=== PATIENT | male | born 1985 | race Caucasian/White ===

== ENCOUNTER 2018-06-27 00:02 | Emergency (ER) | payer MEDICAID ==
[2018-06-27] MEDS ORDERED: LIDOCAINE 2%-EPI 1:100000 20 ML MDV SUBQ STA (00:19)
[2018-06-27] MEDS ORDERED: LIDOCAINE 1% 2 ML VIAL SUBQ ONE (00:47)
[2018-06-27] MEDS ORDERED: cefTRIAXone 1 GM VIAL IM STA (00:47)
[2018-06-27] MEDS ORDERED: SULFAMETH/TRIMETH DS 800/160 MG TABLET PO STA (00:47)
--- NOTE | 2018-06-27 00:52 | ED Physician Documentation ---
History of Present Illness - Stated complaint Stated Complaint: ABSCESS - Chief complaint Chief Complaint: Wound - History obtained from History obtained from: Patient, Friend - History of Present Illness Timing: How many weeks ago (1) Pain level max: 10 Pain level now: 10 Improved by: drainage Worsened by: palpation - Additonal information Additional information: Patient is a 32-year-old male who presents to the emergency department with redness and swelling to the right anterior chest wall. States this started after injecting heroin. He states it drained a large amount of pus yesterday but is continued to hurt today. No fevers. Has had abscesses in the past from drug use as well. Tetanus is up-to-date Review of Systems Constitutional: denies: Fever, Chills Respiratory: denies: Cough GI: denies: Abdominal Pain, Nausea, Vomiting Musculoskeletal: denies: Neck pain, Back pain Neurologic: denies: Headache PD PAST MEDICAL HISTORY - Past Medical History Cardiovascular: None Respiratory: Other Endocrine/Autoimmune: None GI: None : None HEENT: None Psych: ADD/ADHD Musculoskeletal: None Derm: Other - Past Surgical History Past Surgical History: Yes Ortho: Shoulder arthroplasty Cardiovascular: Other - Present Medications Home Medications: Ambulatory Orders Medication Instructions Recorded Confirmed Cyclobenzaprine [Flexeril] 10 mg PO TID PRN #20 tablet 09/12/16 HYDROcod/ACETAM 5/325 [[place] 5/325] 1 - 2 ea PO Q6H PRN #15 tablet 09/12/16 Cephalexin [Keflex] 500 mg PO Q6H #40 capsule 06/27/18 Sulfamethox/Trimeth 800/160 1 each PO BID #20 tablet 06/27/18 [Bactrim Ds 800/160] - Allergies Allergies/Adverse Reactions: Allergies Allergy/AdvReac Type Severity Reaction Status Date / Time codeine Allergy Mild Itching Verified 06/27/18 00:13 - Social History Does the pt smoke?: Yes Smoking Status: Current every day smoker Does the pt drink ETOH?: No Does the pt have substance abuse?: Yes Substance Use and Type: Heroin - Immunizations Immunizations are current?: Yes - POLST Patient has POLST: No PD ED PE NORMAL - Vitals Vital signs reviewed: Yes - General General: Alert and oriented X 3, No acute distress - HEENT HEENT: Moist mucous membranes - Neck Neck: Supple, no meningeal sign - Cardiac Cardiac: RRR, No murmur, Strong equal pulses - Respiratory Respiratory: No respiratory distress, Clear bilaterally - Abdomen Abdomen: Soft, Non tender, Non distended - Derm Derm: Warm and dry - Neuro Neuro: Alert and oriented X 3 - Free text exam Free text exam: 12x8cm of erythema, induration and fluctuance to the R anterior chest wall. + fluctuance Results - Vitals Vitals: Vital Signs - 24 hr 06/27/18 06/27/18 00:11 01:07 Temperature 37.5 C Heart Rate 106 H 103 H Respiratory 20 16 Rate Blood Pressure 148/117 H 130/71 O2 Saturation 95 96 Oxygen O2 Source Room air Procedures - Laceration (location) R chest wall Deep layer closure: Other - Abscess I&D (location) R chest wall Preparation: Lidocaine 2 %, With epi Incision: Incised with scalpel, Purulent drainage, Loculations broken, Irrigated, Packed, Culture obtained Other: Pt tolerated well, Dressing applied, Antibiotic prescribed PD MEDICAL DECISION MAKING - ED course Complexity details: reviewed results, re-evaluated patient, considered differential, d/w patient, d/w family ED course: Patient is a 32-year-old male who presents to the emergency department with a r ight sided chest wall abscess and cellulitis. This was incised and drained. Tolerated well. Given injection of Rocephin here as well as Bactrim. Will place him on Bactrim and Keflex for home. No fevers. No evidence of sepsis. Warnings of infection and instructions on wound care given at bedside. Also counseled on how to minimize scarring. Patient counseled regarding signs and symptoms for which I believe and urgent re-evaluation would be necessary. Patient with good understanding of and agreement to plan and is comfortable going home at this time This document was made in part using voice recognition software. While efforts are made to proofread this document, sound alike and grammatical errors may occur. - Sepsis Event Vital Signs: Vital Signs - 24 hr 06/27/18 06/27/18 00:11 01:07 Temperature 37.5 C Heart Rate 106 H 103 H Respiratory 20 16 Rate Blood Pressure 148/117 H 130/71 O2 Saturation 95 96 Oxygen O2 Source Room air Departure - Departure Disposition: 01 Home, Self Care Clinical Impression: Abscess Cellulitis Qualifiers: Site of cellulitis: trunk Site of cellulitis of trunk: chest wall Qualified Code(s): L03.313 - Cellulitis of chest wall Condition: Good Instructions: ED Abscess IandD Follow-Up: your,doctor or here in 2 days for recheck [Other] Prescriptions: Cephalexin [Keflex] 500 mg PO Q6H #40 capsule Sulfamethox/Trimeth 800/160 [Bactrim Ds 800/160] 1 each PO BID #20 tablet Comments: Take all antibiotics until gone. Return if you worsen. Return in 2 days for a wound check. Return sooner for fevers, chills or worsening symptoms Discharge Date/Time: 06/27/18 01:07
[2018-06-27 01:07] VITALS: BP 130/71
== END 2018-06-27 01:07 | disposition home or self-care (01) ==
LOC: ED 00:02
DX: L02.213 Cutaneous abscess of chest wall (principal); L03.313 Cellulitis of chest wall; F17.200 Nicotine dependence, unspecified, uncomplicated
CPT/HCPCS: 10060; 87070; 87181; 87205; 96372; 99283; A9270

== ENCOUNTER 2018-06-29 20:24 | Emergency (ER) | payer MEDICAID ==
[2018-06-29 20:31] VITALS: BP 145/97
--- NOTE | 2018-06-29 20:41 | ED Physician Documentation ---
PD HPI WOUND RECHECK - Stated complaint Stated Complaint: WOUND CHECK - Chief complaint Chief Complaint: Wound - Histroy obtained from History obtained from: Patient - History of Present Illness Location: Chest Timing - onset: How many days ago (3) Similar symptoms before: Work up / diagnostics, Treatment Recently seen: Emergency Dept - Additional information Additional information: patient is a 32 year old male who is presenting to the emergency department for a wound check. patient was seen her a few days prior. At that time patient was diagnosed with abscess and cellulitis after injecting heroin. Patient was started on bactrim and keflex. patient states that his wound is getting smaller but his girlfriend wanted it to get checked and he doesn't have a primary care physician. Review of Systems Constitutional: denies: Fever, Chills Skin: reports: Rash, Abrasion (s) PD PAST MEDICAL HISTORY - Past Medical History Past Medical History: Yes Cardiovascular: None Respiratory: Other Neuro: None Endocrine/Autoimmune: None GI: None : None HEENT: None Psych: ADD/ADHD Musculoskeletal: None Derm: Other - Past Surgical History Past Surgical History: Yes Ortho: Shoulder arthroplasty Cardiovascular: Other - Present Medications Home Medications: Ambulatory Orders Medication Instructions Recorded Confirmed Cephalexin [Keflex] 500 mg PO Q6H #40 capsule 06/27/18 Sulfamethox/Trimeth 800/160 1 each PO BID #20 tablet 06/27/18 [Bactrim Ds 800/160] - Allergies Allergies/Adverse Reactions: Allergies Allergy/AdvReac Type Severity Reaction Status Date / Time codeine Allergy Mild Itching Verified 06/29/18 20:31 - Social History Does the pt smoke?: Yes Smoking Status: Current every day smoker Does the pt drink ETOH?: No Does the pt have substance abuse?: Yes - Immunizations Immunizations are current?: Yes - POLST Patient has POLST: No PD ED PE NORMAL - Vitals Vital signs reviewed: Yes - General General: Alert and oriented X 3, No acute distress - HEENT HEENT: Atraumatic - Cardiac Cardiac: RRR - Respiratory Respiratory: No respiratory distress - Extremities Extremities: No deformity - Neuro Neuro: Alert and oriented X 3 - Psych Psych: Normal mood PD ED PE EXPANDED - Derm Derm: Abscess (6 by 8 cm area of induration and erythema, minimal discharge) Results - Vitals Vitals: Vital Signs - 24 hr 06/29/18 20:28 Temperature 36.8 C Heart Rate 84 Respiratory 14 Rate Blood Pressure 145/97 H O2 Saturation 98 Oxygen O2 Source Room air PD MEDICAL DECISION MAKING - ED course Complexity details: reviewed old records, considered differential, d/w patient ED course: Patient was seen and examined at bedside. patient was well appearing and in no distress. patient's wound was healing appropriately and patient had his antibiotics. Patient's dressing was changed. patient required no further work up at this time and was stable for discharge with outpatient follow up. - Sepsis Event Vital Signs: Vital Signs - 24 hr 06/29/18 20:28 Temperature 36.8 C Heart Rate 84 Respiratory 14 Rate Blood Pressure 145/97 H O2 Saturation 98 Oxygen O2 Source Room air Departure - Departure Disposition: Home, Self Care Clinical Impression: Cellulitis Condition: Good Instructions: ED Infec Skin Cellulitis Follow-Up: Primary,care provider [Other] Comments: Your wound likes it is progressing well. You should continue and complete your entire course of antibiotics. You can take motrin or tylenol as needed for pain. You should keep the area clean and dry. You may return to the emergency department at any time for new, worsening or uncontrollable symptoms.
== END 2018-06-29 21:01 | disposition home or self-care (01) ==
LOC: ED 20:24
DX: L03.313 Cellulitis of chest wall (principal); F17.200 Nicotine dependence, unspecified, uncomplicated
CPT/HCPCS: 99283

== ENCOUNTER 2018-09-19 12:03 | Outpatient (CLI) | payer MEDICAID | END 2018-09-19 12:04 | disposition EMS.NT | LOC: EMS 12:03 | PROVIDERS: ATTEND Surgery | DX: R21 Rash and other nonspecific skin eruption (principal) ==

== ENCOUNTER 2019-03-11 01:16 | Emergency (ER) | payer OTHER, MEDICAID ==
[2019-03-11 01:24] VITALS: BP 155/95
--- NOTE | 2019-03-11 01:50 | ED Physician Documentation ---
History of Present Illness - Stated complaint Stated Complaint: FIT FOR CONFINEMENT - Chief complaint Chief Complaint: General - History obtained from History obtained from: Patient, Police - History of Present Illness Timing: How many weeks ago (8) - Additonal information Additional information: This is a 33-year-old man is brought in in the custody of police. He was picked up on a warrant. 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 Patient does have a history of IV heroin use. He also tells me that his bottom lip is swollen. He is not sure if he injured it. He has not been running a fever. Review of Systems Constitutional: denies: Fever Throat: reports: Other (Swelling of the bottom lip) Skin: reports: Rash, Lesions Musculoskeletal: reports: Extremity swelling PD PAST MEDICAL HISTORY - Past Medical History Cardiovascular: None Respiratory: Other Neuro: None Endocrine/Autoimmune: None GI: None : None HEENT: None Psych: ADD/ADHD Musculoskeletal: None Derm: Other - Past Surgical History Past Surgical History: Yes Ortho: Shoulder arthroplasty Cardiovascular: Other - Present Medications Home Medications: Ambulatory Orders Medication Instructions Recorded Confirmed Cephalexin [Keflex] 500 mg PO Q6H #40 capsule 06/27/18 Sulfamethox/Trimeth 800/160 1 each PO BID #20 tablet 06/27/18 [Bactrim Ds 800/160] Sulfamethox/Trimeth 800/160 1 each PO BID #20 tablet 03/11/19 [Bactrim Ds 800/160] - Allergies Allergies/Adverse Reactions: Allergies Allergy/AdvReac Type Severity Reaction Status Date / Time No Known Drug Allergies Allergy Verified 03/11/19 01:25 - Social History Does the pt smoke?: Yes Smoking Status: Current every day smoker Does the pt drink ETOH?: No Does the pt have substance abuse?: Yes - Immunizations Immunizations are current?: Yes - POLST Patient has POLST: No PD ED PE NORMAL - Vitals Vital signs reviewed: Yes (Patient is handcuffed) - General General: Alert and oriented X 3, No acute distress, Well developed/nourished - HEENT HEENT: Atraumatic, PERRL, Other (There is an abrasion to the right inner aspect of the bottom lip without laceration. I do not see significant swelling.) - Cardiac Cardiac: RRR, No murmur - Derm Derm: Other (There are a multitude of small little scabs on the right forearm 1 of these has some induration and erythema associated with it but no palpable fluctuance. There is erythema surrounding several other of these areas.) - Extremities Extremities: No deformity - Neuro Neuro: Alert and oriented X 3, No motor deficit, No sensory deficit - Psych Psych: Normal mood, Normal affect Results - Vitals Vitals: Vital Signs - 24 hr 03/11/19 01:21 Temperature 36.7 C Heart Rate 106 H Respiratory 16 Rate Blood Pressure 155/95 H O2 Saturation 98 Oxygen O2 Source Room air PD MEDICAL DECISION MAKING - ED course Complexity details: d/w patient ED course: Patient does have some cellulitis of the right forearm most likely associated with IV drug use. I do not see this is precluding him to be taken to retirement however I have recommended that he get in shower with antibacterial soap and have placed him on Bactrim. They can watch these areas of cellulitis for any progression while he is incarcerated. Departure - Departure Disposition: 01 Home, Self Care Clinical Impression: Cellulitis Condition: Good Instructions: ED Infec Skin Cellulitis Follow-Up: [facility] [Provider Group] Prescriptions: Sulfamethox/Trimeth 800/160 [Bactrim Ds 800/160] 1 each PO BID #20 tablet Comments: Take Bactrim twice a day. Follow-up if these are not improving. Discharge Date/Time: 03/11/19 01:59
[2019-03-11] MEDS ORDERED: SULFAMETH/TRIMETH DS 800/160 MG TABLET PO STA (01:54)
== END 2019-03-11 01:59 | disposition home or self-care (01) ==
LOC: EDUNIT# → ED 01:16
DX: L03.113 Cellulitis of right upper limb (principal); Z86.14 Personal history of Methicillin resistant Staphylococcus aureus infection; S00.511A Abrasion of lip, initial encounter; X58.XXXA Exposure to other specified factors, initial encounter; F11.90 Opioid use, unspecified, uncomplicated; F17.200 Nicotine dependence, unspecified, uncomplicated
CPT/HCPCS: 99281; 99283; A9270

== ENCOUNTER 2022-02-06 14:33 | Outpatient (CLI) | payer MEDICAID ==
--- NOTE | 2022-02-06 15:05 | XRAY Report ---
PROCEDURE: Knee 3 View LT INDICATIONS: DIRECT BLOW TO L KNEE TECHNIQUE: 3 views of the left knee(s) were acquired. COMPARISON: None. FINDINGS: BONES/JOINT: No acute, displaced fracture or dislocation. Trace suprapatellar joint effusion. SOFT TISSUES: Diffuse edema. IMPRESSION: 1.No acute osseous abnormality. Reviewed by: Andreas Cardenas MD on 02/06/2022 3:04 PM PDT Approved by: Andreas Cardenas MD on 02/06/2022 3:04 PM PDT Station ID: [id number]
== END 2022-02-06 14:34 | disposition home or self-care (01) ==
LOC: DI.N 14:33
PROVIDERS: ATTEND Physician Assistant Medical
DX: S80.02XA Contusion of left knee, initial encounter (principal)